=== PATIENT | female | born 1990 | race Two or more races ===

== ENCOUNTER → 2024-08-22 | Outpatient (CLI) | payer MEDICAID, SELFPAY ==
[2024-08-22 14:34] LABS: HCG Qualitative,Urine Negative
== END | disposition home or self-care (01) ==
LOC: SLDO 13:35
PROVIDERS: Referring Provider Internal Medicine Gastroenterology; Visit Provider Internal Medicine Gastroenterology
DX: Z32.00 Encounter for pregnancy test, result unknown (principal)
CPT/HCPCS: 81025

== ENCOUNTER → 2024-08-23 | Outpatient (CLI) | payer MEDICAID, SELFPAY ==
--- NOTE | 2024-08-23 09:00 | XR_ITS ---
Examination: CT abdomen, without intravenous contrast. CT pelvis, without intravenous contrast. CT abdomen, with intravenous contrast. CT pelvis, with intravenous contrast. 2-D sagittal coronal reconstructions. Date and time of exam:August 23, 2024 0913 hours INDICATIONS: Diagnosis C. Difficile December 2023 followed by diarrhea CTDI: vol (mGy) 11.5 DLP: (mGycm) 552 Technique: Multiple 3.0 axial images of the abdomen and pelvis without intravenous contrast, 3.0 mm slice thickness. Multiple 3.0 postcontrast images abdomen and pelvis also obtained, post intravenous injection 60 cc [id number] 2-D sagittal and coronal reconstructions. Low dose protocols were performed. One or more of the following dose reduction techniques were used; automated exposure control, adjustment of the mA and/or KV according to patient size, use of iterative reconstruction technique. Findings: No focal liver or splenic lesions No gallstones Aorta normal size No pancreatic mass No renal or ureteral calculi, no hydronephrosis No bowel obstruction Diffuse hyperemia involving the colon Anteverted uterus Bilateral adnexal masses which may represent cysts including involuting 3 cm right ovarian cyst Mild free fluid in the pelvis IMPRESSION: Diffuse nonspecific colitis pattern Recommend ultrasound pelvis follow-up to assess bilateral probable adnexal cysts
== END | disposition home or self-care (01) ==
LOC: CCTX 08:58
PROVIDERS: PCP Internal Medicine Gastroenterology; Referring Provider Internal Medicine Gastroenterology; Visit Provider Internal Medicine Gastroenterology
DX: R19.7 Diarrhea, unspecified (principal); A04.71 Enterocolitis due to Clostridium difficile, recurrent
CPT/HCPCS: 74178; A4649; Q9967

== ENCOUNTER → 2025-01-18 | Outpatient (CLI) | payer MEDICAID, SELFPAY ==
--- NOTE | 2025-01-18 09:00 | XR_ITS ---
Examination: Gastrografin enema with KUB Fluoroscopy 33 spot fluoroscopic films of the colon Date and time: January 18, 2025 0954 hours INDICATIONS: Incomplete colonoscopy, chronic diarrhea history TECHNIQUE AND FINDINGS: Colon filled in retrograde manner to the cecum with reflux into terminal ileum No constricting colonic lesion No rectal or other ulcerations Postevacuation films demonstrate satisfactory mucosal detail IMPRESSION: No colonic lesions depicted There is abundant stool throughout the colon which limits intraluminal assessment Fluoroscopy 0.5 minute radiation dose 76.61 milligray, 33 spot fluoroscopic films
== END | disposition home or self-care (01) ==
PROVIDERS: PCP Family Medicine; Referring Provider Student in an Organized Health Care Education/Training Program; Visit Provider Student in an Organized Health Care Education/Training Program
DX: K59.00 Constipation, unspecified (principal)
CPT/HCPCS: 74280; Q9963